=== PATIENT | male | born 1985 | race Caucasian/White ===

== ENCOUNTER 2017-09-06 16:44 | Emergency (ER) | payer SELFPAY ==
[~2017-09-06] VITALS: Ht 177.8 cm; Wt 100.0 kg
[2017-09-06] MEDS ORDERED: POVIDONE-IODINE 10% 15 ML SOLUTION UD TP ONE (18:00)
[2017-09-06] MEDS ORDERED: IBUPROFEN 800 MG TABLET PO ONE (18:00)
[2017-09-06] MEDS ORDERED: AMOX TR/POT CLAV 875 MG/125 MG TABLET PO ONE (18:00)
[2017-09-06 20:19] VITALS: BP 128/70
== END 2017-09-06 20:27 | disposition home or self-care (01) ==
LOC: EMS 16:46
DX: S41.052A Open bite of left shoulder, initial encounter (principal); Y04.1XXA Assault by human bite, initial encounter; Y93.89 Activity, other specified; Y92.89 Other specified places as the place of occurrence of the external cause; Y99.8 Other external cause status
CPT/HCPCS: 99284